=== PATIENT | female | born 1995 | race Caucasian/White ===

== ENCOUNTER 2016-07-28 17:13 | Emergency (ER) | payer OTHER ==
[~2016-07-28] VITALS: Ht 162.6 cm; Wt 72.3 kg
[2016-07-28 17:17] VITALS: BP 144/96
== END 2016-07-28 17:53 | disposition home or self-care (01) ==
LOC: EME 17:13
DX: J02.9 Acute pharyngitis, unspecified (principal)
CPT/HCPCS: 99281; 99283; J1100

== ENCOUNTER 2016-11-19 15:04 | Inpatient (IN) | payer OTHER ==
[~2016-11-19] VITALS: Ht 162.6 cm; Wt 70.2 kg
[2016-11-19 15:53] LABS: HEMATOCRIT 41.9 % (36.0-46.0); MCH 31.2 PG (29.0-34.0); MCHC 33.4 G/DL (30.0-36.0); MCV 93.3 FL (83-99); MEAN PLAT.VOLUME 9.1 uM^3 (9.5-12.4); PLATELET COUNT 374 K/uL (156-360); RBC DIS.WIDTH-CV 12.7 % (11.8-14.6); RBC DIS.WIDTH-SD 43.6 % (39-53); RED BLOOD COUNT 4.49 M/uL (3.80-5.20); WHITE BLOOD COUNT 7.9 K/uL (4.1-10.2)
[2016-11-19 16:02] LABS: CHLORIDE 108 mEq/L (99-109); POTASSIUM 4.1 mEq/L (3.7-5.4); SODIUM 138 mEq/L (136-147)
[2016-11-19 16:03] LABS: GLUCOSE 95 mg/dL (70-99)
[2016-11-19 16:05] LABS: ANION GAP 8 MEQ/L (2-14)
[2016-11-19 16:07] LABS: GFR ESTIMATE (CALCULATED) > 59 mL/min/; SERUM ETHYL ALCOHOL < 10 mg/dL
[2016-11-19 16:08] LABS: UREA NITROGEN (BUN) 13 mg/dL (9-23)
[2016-11-19 16:19] LABS: AMPHETAMINE NEGATIVE (500 ng/mL); BARBITURATES NEGATIVE (200 ng/mL); BENZODIAZEPINES PRESUMPTIVE POSITIVE (150 ng/mL); COCAINE NEGATIVE (150 ng/mL); INTERNAL CONTROLS VALID? YES; METHADONE NEGATIVE (200 ng/mL); METHAMPHETAMINE NEGATIVE (500 ng/mL); OPIATES (MORPHINE) NEGATIVE (100 ng/mL); OXYCODONE NEGATIVE (100 ng/mL); PHENCYCLIDINE NEGATIVE (25 ng/mL); PROPOXYPHENE NEGATIVE (300 ng/mL); THC CANNABINOIDS PRESUMPTIVE POSITIVE (50 ng/mL); TRICYCLIC ANTIDEPRESSANTS NEGATIVE (300 ng/mL)
[2016-11-19 16:20] LABS: ADD MEDTOX COMMENT Y
[2016-11-19 16:24] LABS: SALICYLATE < 5.0 MG/DL (15-30)
[2016-11-19 16:30] LABS: QUANTITATIVE HCG < 4.0 MIU/ML
[2016-11-19 16:53] LABS: BENZODIAZEPINES QUANT VALUE 0 NG/ML; BENZODIAZEPINES, URINE SCREEN Negative (200 ng/mL)
[2016-11-19] MEDS ORDERED: HYDROXYZINE HCL25 MG PO (17:11)
[2016-11-19] MEDS ORDERED: LORAZEPAM0.5 MG PO (17:12)
[2016-11-19] MEDS ORDERED: LEXAPRO20 MG PO (17:16)
[2016-11-20 01:00] VITALS: BP 125/78
[2016-11-20 08:11] VITALS: BP 106/57
== END 2016-11-20 15:10 | disposition left against medical advice (07) | DRG 885 ==
LOC: EME 15:04 → EDOF 19:11 → ENRESERV 22:25 → 1WEST 11-20 00:46
PROVIDERS: Physician Assistant
DX: F33.0 Major depressive disorder, recurrent, mild (principal); F41.8 Other specified anxiety disorders; F17.200 Nicotine dependence, unspecified, uncomplicated; F60.9 Personality disorder, unspecified; Z91.5 Personal history of self-harm; T43.592A Poisoning by other antipsychotics and neuroleptics, intentional self-harm, initial encounter; T43.222A Poisoning by selective serotonin reuptake inhibitors, intentional self-harm, initial encounter
CPT/HCPCS: 80048; 84702; 84999; 85027; 90839; 97150 GO; 97165 GO; 99281; 99285; G0480

== ENCOUNTER 2017-10-08 16:15 | Emergency (ER) | payer OTHER ==
[~2017-10-08] VITALS: Ht 162.6 cm; Wt 71.9 kg
[~2017-10-08 16:15] MED LIST: HYDROXYZINE HCL25 MG PO; LEXAPRO20 MG PO; LORAZEPAM0.5 MG PO
[2017-10-08 16:36] LABS: BASOPHIL COUNT 0.1 K/uL (0-0.1); EOSINOPHIL (%) 3.8 % (0-5); EOSINOPHIL COUNT 0.4 K/uL (0-0.3); HEMATOCRIT 40.6 % (36.0-46.0); HEMOGLOBIN 13.7 G/DL (11.9-15.5); IMMATURE GRANULOCYTE (%) 0.3 % (0.0-0.7); LYMPHOCYTE COUNT 2.9 K/uL (1.0-2.8); MCH 31.1 PG (29.0-34.0); MCHC 33.7 G/DL (30.0-36.0); MCV 92.3 FL (83-99); MONOCYTE (%) 7.6 % (3-12); MONOCYTE COUNT 0.8 K/uL (0-0.8); NEUTROPHIL (%) 59.3 % (45-76); NEUTROPHIL COUNT 6.2 K/uL (1.8-6.4); PLATELET COUNT 385 K/uL (156-360); RBC DIS.WIDTH-CV 12.3 % (11.8-14.6); WHITE BLOOD COUNT 10.4 K/uL (4.1-10.2)
[2017-10-08 16:39] LABS: APPEARANCE CLEAR ((CLEAR)); BILIRUBIN NEGATIVE; BLOOD NEGATIVE; COLOR YELLOW ((YELLOW)); GLUCOSE (STRIP) NEGATIVE; KETONES NEGATIVE; LEUKOCYTES NEGATIVE; NITRITE NEGATIVE; PROTEIN (STRIP) NEGATIVE; SPECIFIC GRAVITY 1.024 (1.000-1.030)
[2017-10-08 16:44] LABS: ALBUMIN 4.4 g/dL (3.2-4.8); CHLORIDE 108 mEq/L (99-109); POTASSIUM 4.3 mEq/L (3.7-5.4); SODIUM 140 mEq/L (136-147)
[2017-10-08 16:46] LABS: GLUCOSE 93 mg/dL (70-99); TOTAL PROTEIN 7.6 g/dL (6.4-8.3)
[2017-10-08 16:48] LABS: TOTAL BILIRUBIN 0.4 mg/dL (0.0-1.0)
[2017-10-08 16:50] LABS: ALKALINE PHOSPHATASE 56 IU/L (3-129); CREATININE 0.8 mg/dL (0.6-1.3); GFR ESTIMATE (CALCULATED) > 59 mL/min/
[2017-10-08 16:51] LABS: UREA NITROGEN (BUN) 14 mg/dL (9-23)
[2017-10-08 16:52] LABS: AST (GOT) 15 IU/L (2-34)
[2017-10-08 16:53] LABS: ALT (GPT) 11 IU/L (3-49); LIPASE 19 U/L (1.0-51.0)
[2017-10-08 16:59] LABS: QUANTITATIVE HCG < 4.0 MIU/ML
[2017-10-08] MEDS ORDERED: VALIUM5 MG PO (17:43)
[2017-10-08] MEDS ORDERED: ULTRAM50 MG PO (17:43)
[2017-10-08 18:08] VITALS: BP 122/87
== END 2017-10-08 18:11 | disposition home or self-care (01) ==
LOC: EME 16:15
PROVIDERS: Physician Assistant
DX: M54.5 Low back pain (principal); M62.830 Muscle spasm of back; Z87.891 Personal history of nicotine dependence
CPT/HCPCS: 74019; 80053; 81003; 83690; 84702; 85025; 99281; 99284